=== PATIENT | male | born 1965 | race American Indian/Alaskan Native ===

== ENCOUNTER 2017-07-17 07:58 | Day surgery (SDC) | payer OTHER ==
[~2017-07-17 07:58] MED LIST: ANCEF/STERILE WATER 2 GM/20 ML IV NR; NACL 0.9% IR ONE
--- NOTE | 2017-07-17 08:48 | Anesthesia Consultation ---
Anesthesia Consult and Med Hx Date of service: 07/17/17 - Airway Anesthetic Teeth Evaluation: Good ROM Head & Neck: Adequate Mental/Hyoid Distance: Adequate Mallampati Class: Class III Intubation Access Assessment: Probably Good - Pulmonary Exam CTA: Yes - Cardiac Exam Cardiac Exam: RRR - Pre-Operative Health Status ASA Pre-Surgery Classification: ASA3 Proposed Anesthetic Plan: General - Pulmonary Hx Sleep Apnea: Yes (MILD) - Central Nervous System Hx Back Pain: Yes Hx Psychiatric Problems: Yes - Other Systems Hx Alcohol Use: Yes (OCCAS) Hx Substance Use: No Hx Cancer: No Hx Obesity: Yes - Additional Comments Anesthesia Medical History Comments: Informed consent obtained
--- NOTE | 2017-07-17 08:48 | Anesthesia Day of Surgery ---
Anesthesia Day of Surgery - Day of Surgery Patient Examined: Yes Patient H&P Reviewed: Yes Patient is NPO: Yes
[2017-07-17] MEDS ORDERED: PERCOCET 5/325 PO PRN (08:49)
[2017-07-17] MEDS ORDERED: DILAUDID IV PRN (08:49)
[2017-07-17] MEDS ORDERED: VERSED IV NR (09:00)
[2017-07-17] MEDS ORDERED: NACL 0.9% 1000 ML 1,000 ML IV SCH (09:00)
[2017-07-17] MEDS ORDERED: NEURONTIN PO NR (09:00)
[2017-07-17] MEDS ORDERED: DILAUDID ONE (09:28)
[2017-07-17] MEDS ORDERED: DIPRIVAN 10 MG/ML IV ONE ×2 (09:28→10:26)
[2017-07-17] MEDS ORDERED: ZEMURON IV ONE (09:29)
[2017-07-17] MEDS ORDERED: XYLOCAINE CARDIAC IV ONE (09:29)
[2017-07-17] MEDS ORDERED: ZOFRAN ONE (09:29)
[2017-07-17] MEDS ORDERED: MARCAINE 0.25% INFILTRATI ONE ×3 (09:35→10:57)
[2017-07-17] MEDS ORDERED: NUPERCAINAL ONE (09:35)
[2017-07-17] MEDS ORDERED: TORADOL ONE (11:16)
[2017-07-17] MEDS ORDERED: NACL 0.9% IR ONE (11:17)
[2017-07-17] MEDS ORDERED: NUPERCAINAL PR ONE (11:20)
--- NOTE | 2017-07-17 11:30 | Operative Report ---
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 Clinical examination was strongly indicative of a anal fistula. He was offered the above named procedures possible treatment modality. The risks and benefits were discussed until all questions were answered. He was subsequently brought to the OR. Findings: Internal hemorrhoids, curvilinear anal fistula Procedure: We reviewed the informed consent. The patient was then placed in a jackknife prone position. After adequate anesthesia we verified the patient was then prepped and draped in usual sterile fashion. A rectal exam was performed digitally. I then inserted a anal speculum and examined all the vaca of the rectum. The findings are noted above. The external opening was identified. I injected local anesthetic in a pudendal nerve distribution to aid in postoperative pain control. Using a probe gently inserted it into the external opening. This was slowly advanced until I was able to identify the internal opening within the rectal vault. There was no involvement of the sphincter. I then unroofed the tunnel using a 15 blade. At this time hemostasis was obtained. A dibucaine coated plug was then inserted into the rectal vault with the excess coating the opening of the anal fistula. The patient the tolerated procedure well and was awakened and transferred to the recovery room in no apparent distress.
--- NOTE | 2017-07-17 11:37 | Short Stay Summary ---
Short Stay Documentation Date of service: 07/17/17 - History H&P: dictated - Allergies and Medications Current Medications: Allergies No Known Allergies Allergy (Verified 07/16/17 13:20) Home Medications Medication Instructions Recorded Confirmed Last Taken Type Amitriptyline HCl 150 mg PO DAILY 07/16/17 07/17/17 07/16/17 History Cholecalciferol (Vitamin D3) 2,000 unit PO QDAY 07/16/17 07/17/17 07/15/17 History [Vitamin D3 2,000 unit] Etodolac [Etodolac ER] 400 mg PO PRN PRN 07/16/17 07/17/17 07/15/17 History Gabapentin [Neurontin] 300 mg PO BID 07/16/17 07/17/17 07/16/17 History HYDROcodone/APAP 7.5-325 [[place] 1 each PO Q6HR PRN 07/16/17 07/17/17 07/16/17 History 7.5/325] Mirtazapine [Remeron] 15 mg PO QHS 07/16/17 07/17/17 07/15/17 History Sildenafil Citrate [Sildenafil] 20 mg PO QDAY PRN 07/16/17 07/17/17 07/15/17 History Tamsulosin [Flomax] 0.4 mg PO QDAY 07/16/17 07/17/17 07/15/17 History Active Medications Cefazolin Sodium (Ancef/Sterile Water 2 Gm/20 Ml) 2 gm IV PREOP NR Stop: 07/17/17 23:59 Gabapentin (Neurontin) 300 mg PO PREOP NR Stop: 07/17/17 12:00 Last Admin: 07/17/17 09:29 Dose: 300 mg Hydromorphone HCl (Dilaudid) 0.5 mg IV Q10MIN PRN PRN Reason: Pain , Severe (7-10) Stop: 07/17/17 12:00 Sodium Chloride (Nacl 0.9% 1000 Ml) 1,000 mls @ 100 mls/hr IV DIRECT ANY Last Admin: 07/17/17 09:29 Dose: 100 mls/hr Midazolam HCl (Versed) 2 mg IV PREOP NR Stop: 07/17/17 23:59 Last Admin: 07/17/17 09:29 Dose: 2 mg Oxycodone/Acetaminophen (Percocet 5/325) 1 tab PO ONCE PRN PRN Reason: Pain, Moderate (4-6) Stop: 07/17/17 13:00 - Brief post op/procedure progress note Date of procedure: 07/17/17 Pre-op diagnosis: anal fistula Post-op diagnosis: same Procedure: EUA, anal fistulotomy Anesthesia: GETA, local Surgeon: RAIMUNDO JIMENEZ Estimated blood loss: minimal Pathology: none Condition: stable - Disposition Condition at discharge: Stable Disposition: - TO HOME OR SELFCARE Short Stay Discharge Plan Activity: no restrictions, advance as tolerated Diet: regular Wound: remove dressing (in 24 hours), other (sitz baths 3 times a day) Follow up with: YOLA ABRAMS MD [Primary Care Provider] - 7 Days RAIMUNDO JIMENEZ MD [Staff Physician] - 7 Days Prescriptions: Docusate Sodium [Colace] 100 mg PO BID #60 capsule oxyCODONE /ACETAMINOPHEN [Percocet 5/325 mg] 1 tab PO ONCE PRN #30 tablet PRN Reason: Pain, Moderate (4-6)
[2017-07-17] MEDS ORDERED: ROBINUL ONE (12:05)
[2017-07-17] MEDS ORDERED: NEOSTIGMINE ONE (12:05)
--- NOTE | 2017-07-17 14:08 | Post Anesthesia Evaluation ---
- Post Anesthesia Evaluation Patient Participated: Yes Airway Patent: Yes Stable Respiratory Function: Yes Nausea/Vomiting: No Temp > 96.8F: Yes Pain Manageable: Yes Adequeate Hydration: Yes Anesthesia Complications: No
[2017-07-17 14:14] VITALS: BP 121/79
== END 2017-07-17 13:48 | disposition home or self-care (01) ==
LOC: OR 07:58 → EDBD 07:58 → OR 13:48
PROVIDERS: ATTEND Surgery
DX: K60.3 Anal fistula (principal); G47.30 Sleep apnea, unspecified; E66.9 Obesity, unspecified; Z68.36 Body mass index [BMI] 36.0-36.9, adult
CPT/HCPCS: J0690; J1170; J1885; J2001; J2250; J2405; J2704; J2710; J7030

== ENCOUNTER 2018-03-28 13:03 | Emergency (ER) | payer OTHER ==
[2018-03-28 13:19] VITALS: BP 125/87
[2018-03-28] MEDS ORDERED: NORCO 5/325 PO STA (14:27)
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
== END 2018-03-28 15:59 | disposition home or self-care (01) ==
LOC: ED 13:03
DX: M54.5 Low back pain (principal); G89.29 Other chronic pain; M19.90 Unspecified osteoarthritis, unspecified site; V89.2XXA Person injured in unspecified motor-vehicle accident, traffic, initial encounter; Y93.89 Activity, other specified; Y92.488 Other paved roadways as the place of occurrence of the external cause; Y99.8 Other external cause status
CPT/HCPCS: 72100; 99283